=== PATIENT | female | born 1965 | race African-American/Black ===

== ENCOUNTER → 2024-06-15 | Day surgery (SDC) | payer OTHER | END | disposition home or self-care (01) | LOC: JRADUS-SUR 09:56 | PROVIDERS: ATTEND Internal Medicine | PROC: 0H9U3ZX Drainage of Left Breast, Percutaneous Approach, Diagnostic (ICD-10-PCS; principal; 2024-06-15) | DX: D24.2 Benign neoplasm of left breast (principal) | CPT/HCPCS: 19083; 76942-TC; 77065-TC; 87899; A4648 ==